=== PATIENT | male | born 1960 | race Caucasian/White ===

== ENCOUNTER 2018-07-07 05:28 | Day surgery (SDC) | payer OTHER ==
[2018-07-07] MEDS ORDERED: LACTATED RINGERS 1,000 ML IV ONE (06:05)
[2018-07-07] MEDS ORDERED: FAMOTIDINE 20 MG/2 ML VIAL ONE ×2 (06:06→08:48)
[2018-07-07] MEDS ORDERED: MEPERIDINE (NF) 50 MG/ML VIAL ONE ×2 (08:26→08:48)
[2018-07-07] MEDS ORDERED: MORPHINE SULFATE 10 MG/ML VIAL ONE ×2 (08:41→08:48)
[2018-07-07] MEDS ORDERED: DEXAMETHASONE SOD PHOS 4 MG/ML VIAL ONE (08:48)
[2018-07-07] MEDS ORDERED: MIDAZOLAM HCL 2 MG/2 ML VIAL ONE (08:48)
[2018-07-07] MEDS ORDERED: SEVOFLURANE 250 ML LIQUID IH ONE (08:48)
[2018-07-07] MEDS ORDERED: PROPOFOL 200 MG/20 ML VIAL IV ONE (08:48)
[2018-07-07] MEDS ORDERED: LIDOCAINE HCL 2% PF 100MG/5ML VIAL IJ ONE (08:48)
[2018-07-07] MEDS ORDERED: ceFAZolin SODIUM 1 GM VIAL ONE (08:48)
[2018-07-07] MEDS ORDERED: fentaNYL CITRATE/PF 100 MCG/2 ML INJ. ONE (08:48)
[2018-07-07] MEDS ORDERED: LACTATED RINGERS 1,000 ML IV.SOLN IV ONE (08:48)
[2018-07-07] MEDS ORDERED: PHENYLEPHRINE HCL 10 MG/1 ML ONE (08:48)
[2018-07-07] MEDS ORDERED: ONDANSETRON HCL/PF 4 MG/ 2ML VIAL ONE (08:48)
[2018-07-07] MEDS ORDERED: oxyCODONE HCL 5 MG TABLET ONE (09:48)
[2018-07-07] MEDS ORDERED: oxyCODONE/ACETAMINOPHEN 5/325 TABLET PO ONE (09:48)
== END 2018-07-07 10:33 | disposition home or self-care (01) ==
LOC: OPSURG 05:28
PROVIDERS: ATTEND Orthopaedic Surgery
DX: S53.31XA Traumatic rupture of right ulnar collateral ligament, initial encounter (principal); Y92.9 Unspecified place or not applicable
CPT/HCPCS: 26540; J0690; J1100; J2001; J2175; J2250; J2270; J2307; J2405; J2704; J3010; A9270-GY; J2370; J7120

== ENCOUNTER 2018-10-22 05:54 | Day surgery (SDC) | payer OTHER ==
[2018-10-22] MEDS ORDERED: ceFAZolin SODIUM 1 GM VIAL ONE (08:48)
[2018-10-22] MEDS ORDERED: LACTATED RINGERS 1,000 ML IV.SOLN IV ONE (08:48)
[2018-10-22] MEDS ORDERED: MIDAZOLAM HCL 2 MG/2 ML VIAL ONE (08:48)
[2018-10-22] MEDS ORDERED: LIDOCAINE HCL 1% PF 300MG/30ML VIAL ONE (08:48)
[2018-10-22] MEDS ORDERED: 0.9 % SODIUM CHLORIDE PF 10 ML VIAL IJ ONE (08:48)
[2018-10-22] MEDS ORDERED: fentaNYL CITRATE/PF 100 MCG/2 ML INJ. ONE (08:48)
[2019-01-17 11:22] VITALS: BP 136/84
== END 2018-10-22 08:41 | disposition home or self-care (01) ==
LOC: OPSURG 05:54
PROVIDERS: ATTEND Physical Medicine & Rehabilitation
DX: M54.5 Low back pain (principal); M79.609 Pain in unspecified limb
CPT/HCPCS: 63650; J0690; J2001; J2250; J3010; J7120

== ENCOUNTER 2018-11-26 09:29 | Day surgery (SDC) | payer OTHER ==
[~2018-11-26 09:29] MED LIST: 0.9 % SODIUM CHLORIDE PF 10 ML VIAL IJ ONE; BACITRACIN 50,000 UNIT VIAL IR ONE; HYDROmorphone HCL/PF 1 MG/ML VIAL ONE; LACTATED RINGERS 1,000 ML IV.SOLN IV ONE; LIDOCAINE HCL 1%/EPI. (1:100,000) MDV 20ML VIAL IJ ONE; LIDOCAINE HCL 2% PF 100MG/5ML VIAL IJ ONE; MIDAZOLAM HCL 2 MG/2 ML VIAL ONE; PROPOFOL 200 MG/20 ML VIAL IV ONE; ROCURONIUM BROMIDE 10 MG/ML 5ML VIAL ONE; SEVOFLURANE 250 ML LIQUID IH ONE; SUGAMMADEX SODIUM 200 MG/2 ML VIAL IV ONE; ePHEDrine SULFATE 50 MG/1 ML IVP ONE
[2019-01-17 11:22] VITALS: BP 136/84
== END 2018-11-26 18:00 | disposition home or self-care (01) ==
LOC: OPSURG 09:29
PROVIDERS: ATTEND Physical Medicine & Rehabilitation
DX: M47.26 Other spondylosis with radiculopathy, lumbar region (principal); M54.5 Low back pain; M79.606 Pain in leg, unspecified
CPT/HCPCS: 63650; 63685; C1767; C1778; C1787; J1170; J2001; J2250; J2704; J3490; J7120